=== PATIENT | female | born 1950 | race Two or more races ===

== ENCOUNTER 2017-08-11 08:01 | Outpatient (CLI) | payer OTHER | END 2017-08-11 08:08 | disposition home or self-care (01) | LOC: SONOGRAMA 08:01 | DX: E04.1 Nontoxic single thyroid nodule (principal) ==

== ENCOUNTER 2020-09-19 15:39 | Emergency (ER) | payer OTHER ==
[~2020-09-19] VITALS: Ht 165.1 cm; Wt 80.7 kg
[2020-09-19] MEDS ORDERED: SYNTHROID50 MCG PO (17:47)
[2020-09-19] MEDS ORDERED: LEVOTHYROXINE50 MCG PO (17:50)
[2020-09-19] MEDS ORDERED: NABUMETONE750 MG PO (18:34)
[2020-09-19] MEDS ORDERED: NAPR500T14 PO (18:34)
== END 2020-09-19 18:40 | disposition home or self-care (01) ==
LOC: ER 15:39
DX: M47.892 Other spondylosis, cervical region (principal)

== ENCOUNTER 2021-02-15 10:34 | Emergency (ER) | payer OTHER ==
[~2021-02-15] VITALS: Ht 162.6 cm; Wt 70.8 kg
[~2021-02-15 10:34] MED LIST: LEVOTHYROXINE50 MCG PO; NABUMETONE750 MG PO; NAPR500T14 PO; SYNTHROID50 MCG PO
[2021-02-15] MEDS ORDERED: PEPCID AC20 MG (11:00)
== END 2021-02-15 17:15 | disposition home or self-care (01) ==
LOC: ER 10:34
DX: K52.89 Other specified noninfective gastroenteritis and colitis (principal)

== ENCOUNTER 2021-07-17 12:01 | Emergency (ER) | payer OTHER ==
[~2021-07-17] VITALS: Ht 160 cm; Wt 68.0 kg
[~2021-07-17 12:01] MED LIST changes: +PEPCID AC20 MG
== END 2021-07-17 18:41 | disposition home or self-care (01) ==
LOC: ER 12:01 → EMR PED 12:01 → ER 13:35
DX: M77.52 Other enthesopathy of left foot and ankle (principal)

== ENCOUNTER 2021-08-06 12:17 | Emergency (ER) | payer OTHER ==
[~2021-08-06] VITALS: Ht 160 cm; Wt 70.8 kg
== END 2021-08-06 16:34 | disposition home or self-care (01) ==
LOC: ER 12:17
DX: M79.662 Pain in left lower leg (principal)